=== PATIENT | male | born 1955 | race Caucasian/White ===

== ENCOUNTER → 2018-04-01 | Outpatient (CLI) | payer OTHER ==
[~2018-04-01] VITALS: Ht 172.7 cm; Wt 131.8 kg
[2018-04-01 16:36] VITALS: BP 112/72; PULSE 87; Ht 172.7 cm; Wt 131.8 kg
== END | disposition home or self-care (01) ==
LOC: C.NEUR 14:45
PROVIDERS: ATTEND Internal Medicine Pulmonary Disease
DX: G47.33 Obstructive sleep apnea (adult) (pediatric) (principal)